=== PATIENT | female | born 1995 | race Caucasian/White ===

== ENCOUNTER 2017-06-13 08:57 | Emergency (ER) | payer BC ==
[2017-06-13 09:05] VITALS: RESP 18
--- NOTE | 2017-06-13 09:41 | EDPHY ---
H & P Time Seen by Provider: 06/13/17 09:06 HPI/ROS: CHIEF COMPLAINT: Cough, URI symptoms HISTORY OF PRESENT ILLNESS: 22-year-old immunocompetent female complaining of on an off URI symptoms since beginning of May. Symptoms have by enlarged abated however starting 6 days ago she had return of URI symptoms including intermittently productive cough, rhinorrhea. She was seen at [facility] 3 days ago and started on azithromycin, albuterol, Tessalon Perles. She comes to the ER today after speaking with her mother in [place] to head spoke with her primary care provider recommend she go to the ER for chest x-ray, recommend starting patient on steroids as well. Patient notes that she has had difficulty sleeping secondary to her continued intermittently productive cough. No dyspnea. No chest pain. No back pain. No abdominal pain. No petechial rash. No abdominal pain. no urinary symptoms REVIEW OF SYSTEMS: A ten point review of systems was performed and is negative with the exception of the items mentioned in the HPI PAST MEDICAL & SURGICAL HISTORY: Migraine headache. IBS. Celiac disease. SOCIAL HISTORY:student nonsmoker PHYSICAL EXAM (Prior to examination, patient consented to physical exam, hands were washed and my usual and customary physical exam procedures followed) 1) GENERAL: Well-developed, well-nourished, alert and oriented. Appears nontoxic, speaking full sentences no signs of respiratory distress . 2) HEAD: Normocephalic, atraumatic 3) HEENT: Pupils equal, round, reactive to light bilaterally. Sclera anicteric. Oropharynx: No lesions , no tonsillar enlargement or exudate. Ears bilaterally with normal tympanic membranes. 4) NECK: Full range of motion, no meningeal signs. No adenopathy 5) LUNGS: questionable right basilar rales,, no wheezes, no rhonchi, no retractions. 6) HEART: Regular rate and rhythm, no murmur, no heave, no gallop. 7) ABDOMEN: No guarding, no rebound, no focal tendernessn, 8) MUSCULOSKELETAL: Moving all extremities, no focal areas of tenderness, no obvious trauma. No peripheral edema or discoloration. 9) BACK: No CVA tenderness,. 10) SKIN: no petechiae. 11) Psychiatric: Patient is oriented X 3, there is no agitation. DIFFERENTIAL DIAGNOSIS: in no particular include but limited to pneumonia, bronchitis, influenza, pertussis Smoking Status: Never smoked Constitutional: Initial Vital Signs Temperature (C) 37 C 06/13/17 09:02 Heart Rate 98 06/13/17 09:02 Respiratory Rate 18 06/13/17 09:02 Blood Pressure 123/67 H 06/13/17 09:02 O2 Sat (%) 100 06/13/17 09:02 O2 Delivery Mode Room Air Allergies/Adverse Reactions: Sulfa (Sulfonamide Antibiotics) Allergy (Mild, Verified 06/13/17 09:01) GI Home Medications: Medication Instructions Recorded Albuterol Hfa Anes Only [Proair 2 puffs IH QID 06/13/17 Hfa Icu (*)] Benzonatate [Tessalon Pearles (RX)] 100 mg PO 06/13/17 Codeine/Promethazine [Phenergan W/ 5 ml PO Q6H 06/13/17 Codeine Syrup] Ipratropium 0.06% Nasal [Atrovent 2 sprays EACHNARE QID #1 mdi 06/13/17 0.06% Nasal (RX)] Zpack 06/13/17 methylPREDNISolone [Medrol Dose 4 mg PO DAILY #1 ea 06/13/17 Harvinder] MDM/Departure - MDM Imaging Results: Imaging Impressions Chest X-Ray 06/13/17 09:16 Impression: Airways disease. images reviewed by myself ED Course/Re-evaluation: Patient has been re-evaluated with serial examination. Discussed her chest x- ray showing no definitive infiltrate. She is maintain normal saturations, not hypoxemic, no immunocompromise/suppressed conditions. She is already on a course of azithromycin, day 3. I recommend she continue this. Her mother Fidel Busby spoke with her primary care provider who recommended she come to the ER to receive a prescription for steroids in addition to her albuterol, azithromycin, Tessalon Perles which she is already on. I am starting her on Medrol Dosepak, she notes no history of adverse reaction to steroids. Also provided her intranasal Atrovent for supportive therapy. She feels comfortable being discharged home.Care of patient under supervision of [secondary] supervising physician Dr Gallardo . Patient informs that she has a follow-up appointment at [facility] today at 1:00 p.m.. Recommend she keep this appointment. - Depart Disposition: Home, Routine, Self-Care Clinical Impression: Acute bronchitis Qualifiers: Bronchitis organism: unspecified organism Qualified Code(s): J20.9 - Acute bronchitis, unspecified Condition: Good Instructions: Acute Bronchitis (ED) Additional Instructions: . Return to the emergency department immediately for change in breathing habits , change in voice, change in swallowing habits, change in mental status, or any other symptoms that concern you. Continue taking your antibiotics by your previously prescribed, until finished. Stand Alone Forms: School Excuse Prescriptions: Ipratropium 0.06% Nasal [Atrovent 0.06% Nasal (RX)] 2 sprays EACHNARE QID #1 mdi methylPREDNISolone [Medrol Dose Harvinder] 4 mg PO DAILY #1 ea Referrals: [facility] [Outside] - 06/13/17 1:00 pm (Keep your appointment with [facility] today at 1:00 p.m.)
[2017-06-13 10:01] VITALS: BP 127/68; PULSE 68; TEMP 98.4; O2SAT 99
== END 2017-06-13 10:02 | disposition home or self-care (01) ==
DX: J20.9 Acute bronchitis, unspecified (principal)

== ENCOUNTER 2017-09-22 02:21 | Emergency (ER) | payer BC ==
--- NOTE | 2017-09-22 02:30 | EDPHY ---
H & P HPI/ROS: HPI CHIEF COMPLAINT: "I am having a migraine headache " HISTORY OF PRESENT ILLNESS: This patient very pleasant 22-year-old female she is a [employer] student, she presents emergency room stating that she is having a migraine headache. Patient reports to me that she has chronic headaches and chronic migraine headaches ever since a head injury with concussion years ago, she distally has IBS and asthma, she states for the past week she has been suffering from migraine kind of waxing waning all week. She states feels exactly like her previous migraines she gets a global frontal throbbing headache. She states that tonight she tried aborted but was unable to do so she has ongoing nausea with photophobia and phonophobia. She denies any stiff neck or fever. Denies neck pain. Denies chest pain or shortness of breath. Denies recent illness. States this feels exactly like her previous migraine headaches. Past Medical History: Chronic headaches, migraine, closed-head injury, concussion, IBS, asthma Past Surgical History: No recent surgery Social History: [employer] student denies drugs alcohol tobacco products. Family History: Noncontributory ROS REVIEW OF SYSTEMS: A comprehensive 10 point review of systems is otherwise negative aside from elements mentioned in the history of present illness. Exam Constitutional appears well nontoxic no acute distress, triage nursing summary reviewed, vital signs reviewed, awake/alert. Eyes normal conjunctivae and sclera, EOMI, PERRLA. HENT normal inspection, atraumatic, moist mucus membranes, no epistaxis, neck supple/ no meningismus, no raccoon eyes. Respiratory clear to auscultation bilaterally, normal breath sounds, no respiratory distress, no wheezing. Cardiovascular rate normal, regular rhythm, no murmur, no edema, distal pulses normal. Gastrointestinal soft, non-tender, no rebound, no guarding, normal bowel sounds, no distension, no pulsatile mass. Genitourinary no CVA tenderness. Musculoskeletal no midline vertebral tenderness, full range of motion, no calf swelling, no tenderness of extremities, no meningismus, good pulses, neurovascularly intact. Skin pink, warm, & dry, no rash, skin atraumatic. Neurologic unremarkable neurological exam, no meningeal signs, awake, alert and oriented x 3, AAOx3, moves all 4 extremities equally, motor intact, sensory intact, CN II-XII intact, normal cerebellar, normal vision, normal speech. Psychiatric normal mood/affect. Heme/Lymph/Immune no lymphadenopathy. Differential Diagnosis: Includes but is not limited to in a particular order acute on chronic headache, migraine headache, tension headache, cluster headache , meningitis, intracranial bleed, electrolyte disturbance, dehydration, infection, sinus venous thrombosis Medical Decision Making: Plan for this patient IV establishment with abortive therapy for her migraine. IV fluid bolus basic blood work, IV Toradol, dexamethasone, Zofran, Benadryl, small dose of Dilaudid and re-evaluate. Re-evaluation: 0353: Patient resting comfortably. He did re-evaluate her neurological exam is completely stable. No focal neuro deficit she is resting comfortably. She states her headache is greatly improved with migraine cocktail. She is agreeable discharge. I do recommend she follows up with her primary care doctor. Additionally return precautions have been discussed with her. Source: Patient - Social History Smoking Status: Never smoked Constitutional: Initial Vital Signs Temperature (C) 37.0 C 09/22/17 02:29 Heart Rate 97 09/22/17 02:29 Respiratory Rate 18 09/22/17 02:29 Blood Pressure 91/79 L 09/22/17 02:29 O2 Sat (%) 94 09/22/17 02:29 O2 Delivery Mode Room Air Allergies/Adverse Reactions: Sulfa (Sulfonamide Antibiotics) Allergy (Mild, Verified 09/22/17 02:26) GI Home Medications: Medication Instructions Recorded Breo Ellipta 100-25 Mcg INH 09/22/17 Medical Decision Making - Data Points Laboratory Results: Laboratory Results 09/22/17 02:50 09/22/17 02:50 09/22/17 09/22/17 09/22/17 02:50 02:50 02:50 WBC 6.90 10^3/uL 10^3/uL (3.80-9.50) RBC 4.53 10^6/uL 10^6/uL (4.18-5.33) Hgb 13.9 g/dL g/dL (12.6-16.3) Hct 41.5 % % (38.0-47.0) MCV 91.6 fL fL (81.5-99.8) MCH 30.7 pg pg (27.9-34.1) MCHC 33.5 g/dL g/dL (32.4-36.7) RDW 12.0 % % (11.5-15.2) Plt Count 227 10^3/uL 10^3/uL (150-400) MPV 11.8 fL H fL (8.7-11.7) Neut % (Auto) 53.9 % % (39.3-74.2) Lymph % (Auto) 31.6 % % (15.0-45.0) [place] % (Auto) 10.6 % % (4.5-13.0) Eos % (Auto) 3.2 % % (0.6-7.6) Baso % (Auto) 0.4 % % (0.3-1.7) Nucleat RBC Rel Count 0.0 % % (0.0-0.2) Absolute Neuts (auto) 3.72 10^3/uL 10^3/uL (1.70-6.50) Absolute Lymphs (auto) 2.18 10^3/uL 10^3/uL (1.00-3.00) Absolute Monos (auto) 0.73 10^3/uL 10^3/uL (0.30-0.80) Absolute Eos (auto) 0.22 10^3/uL 10^3/uL (0.03-0.40) Absolute Basos (auto) 0.03 10^3/uL 10^3/uL (0.02-0.10) Absolute Nucleated RBC 0.00 10^3/uL 10^3/uL (0-0.01) Immature Gran % 0.3 % % (0.0-1.1) Immature Gran # 0.02 10^3/uL 10^3/uL (0.00-0.10) Sodium 143 mEq/L mEq/L (135-145) Potassium 4.2 mEq/L mEq/L (3.5-5.2) Chloride 107 mEq/L mEq/L (97-110) Carbon Dioxide 23 mEq/l mEq/l (22-31) Anion Gap 13 mEq/L mEq/L (8-16) BUN 12 mg/dL mg/dL (7-23) Creatinine 0.8 mg/dL mg/dL (0.6-1.0) Estimated GFR > 60 Glucose 89 mg/dL mg/dL (70-100) Calcium 9.4 mg/dL mg/dL (8.5-10.4) Beta HCG, Qual NEGATIVE Medications Given: Discontinued Medications Dexamethasone (Decadron Injection) 10 mg IVP EDNOW ONE Stop: 09/22/17 02:40 Last Admin: 09/22/17 02:52 Dose: 10 mg Diphenhydramine HCl (Benadryl Injection) 50 mg IVP EDNOW ONE Stop: 09/22/17 02:40 Last Admin: 09/22/17 02:52 Dose: 50 mg Hydromorphone HCl (Dilaudid) 0.5 mg IVP EDNOW ONE Stop: 09/22/17 02:40 Last Admin: 09/22/17 02:52 Dose: 0.5 mg Sodium Chloride (Ns) 1,000 mls @ 0 mls/hr IV ONCE ONE; Wide Open PRN Reason: Protocol Stop: 09/22/17 02:40 Last Admin: 09/22/17 02:51 Dose: 1,000 mls Ketorolac Tromethamine (Toradol) 30 mg IVP EDNOW ONE Stop: 09/22/17 02:40 Last Admin: 09/22/17 02:51 Dose: 30 mg Metoclopramide HCl (Reglan Injection) 10 mg IVP EDNOW ONE Stop: 09/22/17 02:40 Last Admin: 09/22/17 02:52 Dose: 10 mg Departure - Departure Disposition: Home, Routine, Self-Care Clinical Impression: Headache Qualifiers: Headache type: unspecified Headache chronicity pattern: acute headache Intractability: intractable Qualified Code(s): R51 - Headache Condition: Good Instructions: Acute Headache (ED) Additional Instructions: 1. Return emergency room if develops worsening headache fever vomiting questions or concerns. Referrals: [facility] [Other] - As per Instructions
[2017-09-22 02:35] VITALS: TEMP 98.6
[2017-09-22] MEDS ORDERED: METOCLOPRAMIDE 10 MG/2 ML VIAL IVP ONE (02:39)
[2017-09-22] MEDS ORDERED: HYDROmorphONE/DILAUDID 1 MG/ML INJ IVP ONE (02:39)
[2017-09-22] MEDS ORDERED: NS 1,000 ML IV ONE (02:39)
[2017-09-22] MEDS ORDERED: KETOROLAC 30 MG/1 ML SDV IVP ONE (02:39)
[2017-09-22] MEDS ORDERED: DEXAMETHASONE 10 MG/ML VIAL IVP ONE (02:39)
[2017-09-22 03:33] LABS: PLATELET COUNT 227 10^3/uL (150-400)
[2017-09-22 04:48] VITALS: BP 111/61; PULSE 81; RESP 16; O2SAT 96
== END 2017-09-22 04:59 | disposition home or self-care (01) ==
DX: R51 Headache (principal); E86.9 Volume depletion, unspecified
CPT/HCPCS: 96374; J1100; J1170; J1200; J1885; J2765